=== PATIENT | male | born 1960 | race Hispanic/Latino ===

== ENCOUNTER 2019-10-05 11:14 | Emergency (ER) | payer BC, SELFPAY ==
[2019-10-05] MEDS ORDERED: HYDROcodone/Acetaminophen 10/325 mg Tablet ONE (11:30)
[2019-10-05] MEDS ORDERED: Ketorolac Tromethamine 60 MG/2 ML VIAL ONE (11:30)
[2019-10-05] MEDS ORDERED: Adacel (T-DAP) 0.5 ML SYRINGE ONE (11:30)
--- NOTE | 2019-10-05 11:52 | RAD ---
Exam:2 views right femur HISTORY: Kicked by horse. Pain. COMPARISON: None FINDINGS: No fracture, cortical irregularity or periosteal reaction. IMPRESSION: No fracture.
== END 2019-10-05 12:03 | disposition home or self-care (01) ==
LOC: ERS 11:14
DX: S70.11XA Contusion of right thigh, initial encounter (principal); Z23 Encounter for immunization; W55.12XA Struck by horse, initial encounter
CPT/HCPCS: 90471; 90715; 96372; J1885

== ENCOUNTER 2020-03-25 07:09 | Emergency (ER) | payer OTHER ==
[2020-03-25] MEDS ORDERED: Ketorolac Tromethamine 30 MG/ML VIAL ONE (07:39)
[2020-03-25 08:03] LABS: #Basophils 0.1 thou/uL (0.0-0.2); #Lymphocytes 0.6 thou/uL (1.20-3.40); #Monocytes 0.6 thou/uL (0.11-0.59); #Neutrophils 3.4 thou/uL (1.40-6.50); %Basophils 1.9 % (0.0-1.0); %Eosinophils 0.9 % (0.0-10.0); %Lymphocytes 12.4 % (21.0-51.0); %Monocytes 12.1 % (0.0-10.0); %Neutrophils 72.6 % (42.0-75.0); Mean Corpuscular Hemoglobin 33.2 pg (27.0-31.0); Mean Corpuscular Volume 97.6 fL (78.0-98.0); Mean Platelet Volume 7.3 fL (7.4-10.4); Platelet Count 155 thou/uL (130-400); RBC Distribution Width 11.3 % (11.5-14.5); Red Blood Cell (RBC) Count 4.52 mill/uL (4.70-6.10); White Blood Cell (WBC) Count 4.6 thou/uL (4.8-10.8)
[2020-03-25 08:28] LABS: ALT (SGPT) 28 U/L (8-55); AST (SGOT) 37 U/L (5-34); Albumin 4.3 g/dL (3.5-5.0); Alkaline Phosphatase 66 U/L (40-110); Anion Gap 10 mmol/L (10-20); BUN (Urea Nitrogen) 12 mg/dL (8.4-25.7); Bilirubin, Total 0.4 mg/dL (0.2-1.2); Calc. Creatinine Clearance 0 mL/min (70-130); Calcium 8.8 mg/dL (7.8-10.44); Carbon Dioxide 27 mmol/L (22-29); Chloride 105 mmol/L (98-107); Estimated GFR-MDRD 79; Globulin 3.4 g/dL (2.4-3.5); Glucose 111 mg/dL (70-105); Potassium 4.8 mmol/L (3.5-5.1); Protein, Total 7.7 g/dL (6.0-8.3); Sodium 137 mmol/L (136-145)
[2020-03-25 09:50] LABS: Bilirubin Negative (Negative); Blood, Urine Negative (Negative); Clarity Clear (Clear); Glucose, Urine (Dipstick) Normal (Negative); Leukocyte Negative Leu/uL (Negative); Nitrite Negative (Negative); Protein, Urine (Dipstick) 10 mg/dL (Neg-Trace); Urobilinogen Normal mg/dL (Less than 2)
--- NOTE | 2020-03-25 10:02 | CT ---
ABDOMEN AND PELVIC CT SCAN WITH IV CONTRAST: HISTORY: Abdominal pain. FINDINGS: Visualized lung bowers are clear. Liver, gallbladder, pancreas, spleen, and adrenal glands are unrem arkable. There are some too small to characterize bilateral renal hypodensities, statistically small cysts with several small cortical scars of the right upper renal pole region. No renal calculi or a cute obstruction. No CT evidence for acute appendicitis. No abscess or abnormal fluid collection . No large or small bowel obstruction. Lumbar spine degenerative disk disease. Minimal focal asymm etry of the right anterior abdominal wall soft tissue musculature, possibly related to prior surgery or prior injury. Urinary bladder and prostate gland appear unremarkable. A small fat-containing lef t inguinal hernia. IMPRESSION: No significant acute intraabdominal or pelvic process. Other findings as above. POS: [facility]
== END 2020-03-25 10:44 | disposition home or self-care (01) ==
LOC: ERS 07:09
DX: R10.9 Unspecified abdominal pain (principal)
CPT/HCPCS: 74177; 80053; 81003; 84484; 85025; 93005; 96361; 96374; J1885

== ENCOUNTER 2020-04-06 10:46 | Emergency (ER) | payer OTHER ==
[2020-04-06] MEDS ORDERED: diphenhydrAMINE 50 MG/ML VIAL ONE (11:41)
[2020-04-06] MEDS ORDERED: Metoclopramide HCl 10 MG/2 ML VIAL ONE (11:41)
[2020-04-06] MEDS ORDERED: Acetaminophen 500 MG TAB ONE (11:41)
[2020-04-06 12:07] LABS: #Basophils 0.1 thou/uL (0.0-0.2); #Eosinphils 0.1 thou/uL (0.0-0.7); #Lymphocytes 0.8 thou/uL (1.20-3.40); #Monocytes 0.6 thou/uL (0.11-0.59); #Neutrophils 5.7 thou/uL (1.40-6.50); %Basophils 0.8 % (0.0-1.0); %Eosinophils 1.5 % (0.0-10.0); %Lymphocytes 11.1 % (21.0-51.0); %Monocytes 8.3 % (0.0-10.0); %Neutrophils 78.4 % (42.0-75.0); Hemoglobin 15.1 g/dL (14.0-18.0); Mean Corpuscular HGB CONC 34.5 g/dL (32.0-36.0); Mean Corpuscular Volume 95.6 fL (78.0-98.0); Mean Platelet Volume 6.7 fL (7.4-10.4); Platelet Count 388 thou/uL (130-400); RBC Distribution Width 11.2 % (11.5-14.5); Red Blood Cell (RBC) Count 4.59 mill/uL (4.70-6.10); White Blood Cell (WBC) Count 7.2 thou/uL (4.8-10.8)
--- NOTE | 2020-04-06 12:29 | RAD ---
PORTABLE CHEST 1 VIEW: Date: 04/06/2020 Time: 1202 hours HISTORY: Cough. COVID-positive. FINDINGS: Comparison made with exam of 04/03/2020. The heart size is normal. The lungs are expanded with worsening of peripheral patchy air space opacit ies. No pneumothoraces or pleural effusions are seen. IMPRESSION: Findings are consistent with COVID-19 pneumonia. POS: [facility]
[2020-04-06 12:32] LABS: ALT (SGPT) 115 U/L (8-55); AST (SGOT) 70 U/L (5-34); Albumin 3.9 g/dL (3.5-5.0); Alkaline Phosphatase 86 U/L (40-110); Anion Gap 14 mmol/L (10-20); BUN (Urea Nitrogen) 11 mg/dL (8.4-25.7); Bilirubin, Total 0.5 mg/dL (0.2-1.2); Calc. Creatinine Clearance 0 mL/min (70-130); Calcium 9.6 mg/dL (7.8-10.44); Carbon Dioxide 24 mmol/L (22-29); Chloride 102 mmol/L (98-107); Estimated GFR-MDRD 89; Globulin 4.3 g/dL (2.4-3.5); Glucose 102 mg/dL (70-105); Potassium 4.4 mmol/L (3.5-5.1); Protein, Total 8.2 g/dL (6.0-8.3); Sodium 136 mmol/L (136-145)
== END 2020-04-06 14:30 | disposition home or self-care (01) ==
LOC: ERS 10:46
DX: U07.1 COVID-19 (principal); R74.8 Abnormal levels of other serum enzymes; R51 Headache
CPT/HCPCS: 71045; 80053; 84484; 85025; 93005; 96365; 96375; J1200; J2765

== ENCOUNTER 2020-06-02 12:59 | Emergency (ER) | payer OTHER ==
[2020-06-02 14:06] LABS: #Eosinphils 0.1 thou/uL (0.0-0.7); #Monocytes 0.4 thou/uL (0.11-0.59); #Neutrophils 3.9 thou/uL (1.40-6.50); %Basophils 0.2 % (0.0-1.0); %Eosinophils 1.6 % (0.0-10.0); %Lymphocytes 18.7 % (21.0-51.0); %Monocytes 7.8 % (0.0-10.0); %Neutrophils 71.6 % (42.0-75.0); Hemoglobin 14.7 g/dL (14.0-18.0); Mean Corpuscular HGB CONC 35.4 g/dL (32.0-36.0); Mean Corpuscular Hemoglobin 33.8 pg (27.0-31.0); Mean Corpuscular Volume 95.6 fL (78.0-98.0); Mean Platelet Volume 7.6 fL (7.4-10.4); Platelet Count 198 thou/uL (130-400); RBC Distribution Width 11.9 % (11.5-14.5); Red Blood Cell (RBC) Count 4.34 mill/uL (4.70-6.10); White Blood Cell (WBC) Count 5.4 thou/uL (4.8-10.8)
--- NOTE | 2020-06-02 14:17 | RAD ---
XR Chest 1 View Portable HISTORY: Chest pain COMPARISON: 04/14/2020 FINDINGS: The heart size is normal. The lungs are well expanded without focal areas of consolidation, pneumothorax or pleural effusions. IMPRESSION: No radiographic evidence of acute cardiopulmonary process.
[2020-06-02 14:31] LABS: ALT (SGPT) 17 U/L (8-55); AST (SGOT) 23 U/L (5-34); Albumin 4.5 g/dL (3.5-5.0); Alkaline Phosphatase 69 U/L (40-110); Anion Gap 11 mmol/L (10-20); BUN (Urea Nitrogen) 14 mg/dL (8.4-25.7); Bilirubin, Total 0.4 mg/dL (0.2-1.2); Calc. Creatinine Clearance 0 mL/min (70-130); Calcium 9.4 mg/dL (7.8-10.44); Carbon Dioxide 27 mmol/L (22-29); Chloride 105 mmol/L (98-107); Estimated GFR-MDRD 82; Glucose 103 mg/dL (70-105); Lipase 22 U/L (8-78); Potassium 3.9 mmol/L (3.5-5.1); Protein, Total 7.5 g/dL (6.0-8.3); Sodium 139 mmol/L (136-145)
[2020-06-02] MEDS ORDERED: Aspirin Chewable 81 MG TAB ONE ×2 (14:31→14:33)
[2020-06-02] MEDS ORDERED: Acetaminophen 500 MG TAB ONE (14:43)
[2020-06-02] MEDS ORDERED: Cyclobenzaprine 10 MG TAB ONE (14:46)
[2020-06-02 15:37] LABS: Troponin I Less than 0.010 ng/mL (< 0.028)
--- NOTE | 2020-06-06 13:46 | EKG ---
Test Reason : Blood Pressure : / mmHG Vent. Rate : 090 BPM Atrial Rate : 090 BPM P-R Int : 110 ms QRS Dur : 086 ms QT Int : 344 ms P-R-T Axes : 062 036 042 degrees QTc Int : 420 ms Sinus rhythm with short [place] Otherwise normal ECG Confirmed by CANDE Enciso, ENRIQUETA ([id number]), map editor MICHOACANO RAMIREZ ([id number] on 06/06/2020 1:46:13 PM Referred By: Confirmed By:ENRIQUETA CASTELLON M.D.
== END 2020-06-02 16:10 | disposition home or self-care (01) ==
LOC: ERS 12:59
DX: R07.89 Other chest pain (principal)
CPT/HCPCS: 36415; 71045; 80053; 83690; 84484; 85025; 93005; 94760

== ENCOUNTER 2020-07-27 12:34 | Emergency (ER) | payer OTHER ==
[2020-07-27] MEDS ORDERED: Ketorolac Tromethamine 30 MG/ML VIAL ONE (14:59)
--- NOTE | 2020-07-27 15:01 | RAD ---
RIGHT KNEE 4 VIEWS: Date: 07/27/2020 HISTORY: Right knee pain. FINDINGS/IMPRESSION: No acute fracture or dislocation is identified. POS: [facility]
== END 2020-07-27 15:24 | disposition home or self-care (01) ==
LOC: ERS 12:34
DX: S80.01XA Contusion of right knee, initial encounter (principal); V89.2XXA Person injured in unspecified motor-vehicle accident, traffic, initial encounter
CPT/HCPCS: 96372; J1885